=== PATIENT | female | born 1960 | race Caucasian/White ===

== ENCOUNTER → 2018-08-11 | Outpatient (CLI) | payer MEDICAID, OTHER ==
--- NOTE | 2018-08-12 09:36 | MM ---
Reason for exam: screening (asymptomatic). Last mammogram was performed 2 years and 5 months ago. History: Patient is postmenopausal. Family history of breast cancer in maternal aunt and breast cancer in paternal grandmother at age 70. Benign stereotactic core biopsy of the right breast, October 04, 1999. Took hormonal contraceptives for 7 years. Physical Findings: A clinical breast exam by your physician is recommended on an annual basis and results should be correlated with mammographic findings. MG Screening Mammo w CAD Bilateral CC and MLO view(s) were taken. Prior study comparison: March 13, 2016, right breast MG work up mamm w CAD RT. March 06, 2016, bilateral MG foundation screening mammo. There are scattered fibroglandular densities. Finding: There are 7 mm equal density (isodense), obscured oval masses in both breasts. Previous mammotome biopsy in the right breast. ASSESSMENT: Incomplete: need additional imaging evaluation, BI-RAD 0 RECOMMENDATION: Special view mammogram of both breasts. If lesion persists on supplemental views, image directed ultrasound is recommended. [facility] will attempt to contact patient to return for supplemental views and ultrasound if indicated.
--- NOTE | 2018-08-12 14:15 | BD ---
EXAMINATION TYPE: Axial Bone Density DATE OF EXAM: 08/11/2018 COMPARISON: NONE CLINICAL HISTORY: Post menopausal female Height: 66 Weight: 218.1 FRAX RISK QUESTIONS: Alcohol (3 or more units per day): no Family History (Parent hip fracture): yes Glucocorticoids (More than 3mos): no (Ex: prednisone, prednisolone, methylprednisolone, dexamethasone, and hydrocortisone). History of Fracture in Adulthood: no Secondary Osteoporosis: 1. Type 1 Diabetes: no 2. Hyperthyroidism: no 3. Menopause before 45: no 4. Malnutrition: no 5. Chronic liver disease: yes Rheumatoid Arthritis: no Current Tobacco Use: no RISK FACTORS HISTORY OF: History of Wrist Fracture: left wrist When: as a child Family History of Osteoporosis: no Active: yes Diet low in dairy products/other sources of calcium: no Postmenopausal woman: age 56 Lost more than 2 inches in height since high school: no MEDICATIONS: none Additional History: EXAM MEASUREMENTS: Bone mineral densitometry was performed using the [employer] System. Bone mineral density as measured about the Lumbar spine is: ----- L1-L4(G/cm2): 1.110 T Score Values are as follows: ----- L2: -0.3 ----- L3: -0.2 ----- L4: -1.4 ----- L1-L4: -0.6 Bone mineral density has: decreased -11.4 % since study of: 06.20.2012 Bone mineral density about the R hip (g/cm2): 0.963 Bone mineral density about the L hip (g/cm2): 0.974 T Score values are as follows: -----R Neck: -0.5 -----L Neck: -0.5 -----R Total: 0.3 -----L Total: 0.2 Bone mineral density has: decreased -7.4 % since study of: 06.20.2012 IMPRESSION: Normal (Values between +1 and -1 indicate normal bone mass). Consider repeating this study in 5 year s or sooner if there is some new clinical indication. NOTE: T-SCORE=SD OF THE YOUNG ADULT MEAN.
== END | disposition home or self-care (01) ==
LOC: RADMAMWWP 15:03
PROVIDERS: ATTEND Obstetrics & Gynecology
DX: Z12.31 Encounter for screening mammogram for malignant neoplasm of breast (principal); Z13.820 Encounter for screening for osteoporosis
CPT/HCPCS: 77067; 77080

== ENCOUNTER → 2018-08-13 | Outpatient (CLI) | payer MEDICAID, OTHER ==
--- NOTE | 2018-08-14 09:59 | MM ---
Reason for exam: additional evaluation requested from abnormal screening. Last mammogram was performed less than 1 month ago. History: Patient is postmenopausal. Family history of breast cancer in maternal aunt and breast cancer in paternal grandmother at age 70. Benign stereotactic core biopsy of the right breast, October 04, 1999. Took hormonal contraceptives for 7 years. Physical Findings: Nurse did not find any significant physical abnormalities on exam. MG 3D Work Up W/Cad SHERWIN Bilateral spot compression CC, spot compression MLO, and LM view(s) were taken. Prior study comparison: August 11, 2018, bilateral MG screening mammo w CAD. March 13, 2016, right breast MG work up mamm w CAD RT. Finding: There are equal density (isodense) masses in both breasts. These results were verbally communicated with the patient and result sheet given to the patient on 08/13/18. ASSESSMENT: Incomplete: need additional imaging evaluation, BI-RAD 0 RECOMMENDATION: Ultrasound of both breasts.
--- NOTE | 2018-08-14 10:04 | USB ---
Reason for exam: additional evaluation requested from abnormal screening. History: Patient is postmenopausal. Family history of breast cancer in maternal aunt and breast cancer in paternal grandmother at age 70. Benign stereotactic core biopsy of the right breast, October 04, 1999. Took hormonal contraceptives for 7 years. US Breast Workup Limited SHERWIN Right limited breast ultrasound including focal area of concern, retroareolar and axilla demonstrates a 0.4 x 0.5 x 0.4cm cystic lesion at the posterior nipple and ducts at the posterior nipple. Left limited breast ultrasound including focal area of concern, retroareolar and axilla demonstrates a 1.1 x 0.8 x 0.3cm cystic lesion at 6 o'clock and ducts at the posterior nipple. These results were verbally communicated with the patient and result sheet given to the patient on 08/13/18. ASSESSMENT: Suspicious, BI-RAD 4 RECOMMENDATION: Aspiration of the right breast. Called Dr. Quan with mammographic findings and has scheduled an appointment for the patient for 09/11/18 at 8:[address] Carballo. Aspiration scheduled for 08/25/18 at 8:00. PRELIMINARY REPORT CALLED AND FAXED TO DR. CARBALLO ON 08/14/18.
== END | disposition home or self-care (01) ==
LOC: RADMAMWWP 14:12
PROVIDERS: ATTEND Obstetrics & Gynecology
DX: R92.8 Other abnormal and inconclusive findings on diagnostic imaging of breast (principal)
CPT/HCPCS: 77062; 77066

== ENCOUNTER → 2018-08-25 | Day surgery (SDC) | payer MEDICAID ==
[2018-08-25 07:33] VITALS: RESP 16; BMI 35.2
[2018-08-25 09:33] VITALS: BP 127/85; PULSE 85; TEMP 97.8
--- NOTE | 2018-08-25 11:58 | USB ---
EXAMINATION TYPE: US biopsy breast VAD RT, Postbiopsy MG diagnostic mammo RT wo CAD DATE OF EXAM: 08/25/2018 CLINICAL HISTORY: 57-year-old female R98.2 ABN CORTEZ. Referred for ultrasound- guided right breast biopsy TECHNIQUE: Ultrasound guided core biopsy of the right breast. COMPARISON: 08/13/2018 FINDINGS: The procedure of ultrasound guided core biopsy was explained to the patient. Benefits, alternatives, and risks were discussed. An informed consent was then obtained. The patient was placed in supine positioning for imaging and for the procedure. The overlying skin was prepped and draped in usual sterile fashion. Lidocaine buffered with bicarbonate was used as anesthetic into the skin and subcutaneous tissue up to area of concern in the subareolar right breast. Under ultrasound guidance, a 13-gauge vacuum-assisted mammotome Elite biopsy gun was used to obtain 3 core samples. The lesion collapsed after the first pass suggesting a cystic etiology. Following this, a ribbon clip was left at the site of biopsy. The patient tolerated the procedure well without any immediate complication. The patient was kept in the radiology department for short stay after the procedure and then discharged home in stable condition. Postprocedure mammogram shows the ribbon clip in place in the subareolar right breast at the site of mammographic asymmetry. IMPRESSION: Successful, uncomplicated ultrasound guided core biopsy of area of concern in the subareolar right breast. A cystic etiology is suggested given that the lesion collapsed after the first past. Full pathology results to follow. Pathology Results: Benign RIGHT BREAST POSTERIOR NIPPLE, ULTRASOUND GUIDED CORE BIOPSY: Fibrocystic changes including cysts with apocrine metaplasia and fibrosis. Recommendation Follow up ultrasound of the right breast in 6 months. HARPREET
== END | disposition home or self-care (01) ==
LOC: RADUSWWP 07:14
PROVIDERS: ATTEND Surgery
DX: N60.11 Diffuse cystic mastopathy of right breast (principal); N60.81 Other benign mammary dysplasias of right breast
CPT/HCPCS: 88305; 77065; 19083; A4648; J2001

== ENCOUNTER → 2018-12-05 | Outpatient (CLI) | payer MEDICAID ==
[2018-12-05 08:56] LABS: Basophils # (A) 0.1 k/uL (0-0.2); Basophils % (A) 2 %; Eosinophils # (A) 0.3 k/uL (0-0.7); Eosinophils % (A) 5 %; HCT 44.4 % (34.0-46.0); HGB 14.5 gm/dL (11.4-16.0); Lymphocytes # (A) 1.6 k/uL (1.0-4.8); Lymphocytes % (A) 32 %; MCHC 32.8 g/dL (31.0-37.0); MCV 88.6 fL (80.0-100.0); Monocytes # (A) 0.3 k/uL (0-1.0); Monocytes % (A) 6 %; Neutrophils # (A) 2.7 k/uL (1.3-7.7); Neutrophils % (A) 53 %; Platelet Count 324 k/uL (150-450); RBC 5.01 m/uL (3.80-5.40); RDW 14.4 % (11.5-15.5); WBC 5.1 k/uL (3.8-10.6)
[2018-12-05 11:40] LABS: Erythrocyte Sedimentation Rate 10 mm/hr (0-20)
[2018-12-05 17:02] LABS: Rheumatoid Factor 6 IU/mL (0-15)
[2018-12-05 17:11] LABS: Vitamin D 25 Hydroxy 41.3 ng/mL (30.0-100.0)
[2018-12-05 17:22] LABS: ALT 46 U/L (8-44); AST 30 U/L (13-35); African American GFR (CKD) 82.8 (60.0-200.0); Albumin/Globulin Ratio 2.14 (1.60-3.17); Alkaline Phosphatase 112 U/L (41-126); BUN/Creat Ratio 22.22 Ratio (12.00-20.00); C Reactive Protein <0.4 mg/dL (0.0-0.8); Calcium 10.2 mg/dL (8.7-10.3); Carbon Dioxide 29.6 mmol/L (21.6-31.8); Chloride 100 mmol/L (96-109); Cholesterol 256 mg/dL (0-200); Globulin 2.2 g/dL (1.6-3.3); Glucose 328 mg/dL (70-110); LDL Cholesterol,Calculated 146.2 mg/dL (0.0-131.0); Potassium 5.1 mmol/L (3.5-5.5); Sodium 139 mmol/L (135-145); Total Bilirubin 0.6 mg/dL (0.3-1.2); Total Protein 6.9 g/dL (6.2-8.2)
[2018-12-05 18:39] LABS: DNA Double-Stranded NEGATIVE (NEGATIVE)
== END | disposition home or self-care (01) ==
LOC: LABWHC1 08:06
PROVIDERS: ATTEND Physician Assistant Medical
DX: Z00.01 Encounter for general adult medical examination with abnormal findings (principal); R26.81 Unsteadiness on feet; G31.84 Mild cognitive impairment of uncertain or unknown etiology; R68.2 Dry mouth, unspecified; H04.129 Dry eye syndrome of unspecified lacrimal gland; Z13.228 Encounter for screening for other metabolic disorders
CPT/HCPCS: 36415; 80053; 80061; 82306; 82607; 84439; 84443; 85025; 85652; 86038; 86140; 86225; 86431

== ENCOUNTER → 2019-02-27 | Outpatient (CLI) | payer OTHER ==
--- NOTE | 2019-02-27 11:19 | USB ---
Reason for exam: follow-up at short interval from prior study. History: Patient is postmenopausal. Family history of breast cancer in maternal aunt and breast cancer in paternal grandmother at age 70. Benign US biopsy breast VAD RT of the right breast, August 25, 2018. Benign stereotactic core biopsy of the right breast, October 04, 1999. Took hormonal contraceptives for 7 years. Physical Findings: Nurse Summary: patient states she has pain right side 6 o'clock x 1 months intermittently (nurse TM). US Breast Limited BILAT Right limited breast ultrasound including focal area of concern, retroareolar and axilla demonstrates a clip seen at the posterior nipple and duct ectasia at the posterior nipple. Left limited breast ultrasound including focal area of concern, retroareolar and axilla demonstrates a 0.8 x 0.4 x 0.9cm cystic lesion at 6 o'clock, size stable, increased echoes with internal debris, a 0.6 x 0.3 x 0.5cm lesion too small to characterize at 8 o'clock and duct ectasia at the posterior nipple. These results were verbally communicated with the patient and result sheet given to the patient on 02/27/19. ASSESSMENT: Benign, BI-RAD 2 RECOMMENDATION: Return to routine screening mammogram schedule for both breasts. Back on schedule. Manage on a clinical basis with regard to left breast pain.
== END | disposition home or self-care (01) ==
LOC: RADUSWWP 09:00
PROVIDERS: ATTEND Obstetrics & Gynecology
DX: R92.8 Other abnormal and inconclusive findings on diagnostic imaging of breast (principal)

== ENCOUNTER → 2021-08-25 | Outpatient (CLI) | payer OTHER ==
--- NOTE | 2021-08-28 10:04 | MM ---
Reason for exam: screening (asymptomatic). Last mammogram was performed 3 years ago. History: Patient is postmenopausal. Family history of breast cancer in maternal aunt and breast cancer in paternal grandmother at age 70. Benign US biopsy breast VAD RT of the right breast, August 25, 2018. Benign stereotactic core biopsy of the right breast, October 04, 1999. Took hormonal contraceptives for 7 years. Physical Findings: A clinical breast exam by your physician is recommended on an annual basis and results should be correlated with mammographic findings. MG 3D Screening Mammo W/Cad Bilateral CC and MLO view(s) were taken. Prior study comparison: August 25, 2018, right breast MG diagnostic mammo RT wo CAD. August 13, 2018, bilateral MG 3d work up w/cad SHERWIN. There are scattered fibroglandular densities. There is no discrete abnormality. No significant changes when compared with prior studies. ASSESSMENT: Negative, BI-RAD 1 RECOMMENDATION: Routine screening mammogram of both breasts in 1 year.
== END | disposition home or self-care (01) ==
LOC: RADMAMWWP 07:07
PROVIDERS: ATTEND Obstetrics & Gynecology
DX: Z12.31 Encounter for screening mammogram for malignant neoplasm of breast (principal); Z80.3 Family history of malignant neoplasm of breast; Z78.0 Asymptomatic menopausal state
CPT/HCPCS: 77063; 77067

== ENCOUNTER 2021-11-22 09:13 | Day surgery (SDC) | payer OTHER ==
[2021-11-17 15:46] VITALS: BMI 30.4
[~2021-11-22 09:13] MED LIST: LACTATED RINGERS 1,000 ML IV SCH
[2021-11-22 10:07] LABS: Glucose,Whole Blood 173 mg/dL (70-110)
[2021-11-22] MEDS ORDERED: PROPOFOL 10 MG/ML 20 ML VIAL IV ONE (10:35)
--- NOTE | 2021-11-22 10:53 | P.PCN ---
Date of Procedure: 11/22/21 Procedure(s) Performed: BRIEF HISTORY: Patient is a 60-year-old pleasant white female scheduled for an elective colonoscopy as a part of evaluation of intermittent rectal bleeding for the last 2 weeks' duration. PROCEDURE PERFORMED: Colonoscopy. PREOPERATIVE DIAGNOSIS: Intermittent rectal bleeding. IV sedation per Anesthesia. PROCEDURE: After informed consent was obtained, the patient, was brought into the endoscopy unit. IV sedation was administered by Anesthesia under continuous monitoring. Digital rectal examination was normal. Initially the Olympus CF-160 flexible video colonoscope was then inserted in the rectum, gradually advanced into the cecum without any difficulty. Careful examination was performed as the scope was gradually being withdrawn. Ileocecal valve and the appendiceal orifice were visualized and appeared normal. Prep was excellent. Mucosa of the cecum, ascending colon, transverse colon, descending colon, sigmoid colon, and rectum appeared normal. Retroflexion was performed in the rectum and all internal hemorrhoids were seen. The patient tolerated the procedure well. IMPRESSION: Normal-appearing colon from rectum to cecum with no evidence of colorectal neoplasia . Small internal hemorrhoids. RECOMMENDATIONS: Findings of this examination were discussed with the patient as well as a family. She was advised to be a high-fiber diet and take fiber supplements a regular basis and avoid straining and constipation. Recommend repeat screening colonoscopy in 10 years.
[2021-11-22 11:14] VITALS: RESP 16
[2021-11-22 11:28] VITALS: BP 146/90; PULSE 75
== END 2021-11-22 11:54 | disposition home or self-care (01) ==
LOC: ORWHC2ENDO 09:13
PROVIDERS: ATTEND Internal Medicine Gastroenterology
DX: K64.8 Other hemorrhoids (principal); K21.9 Gastro-esophageal reflux disease without esophagitis; E11.9 Type 2 diabetes mellitus without complications; Z88.5 Allergy status to narcotic agent; Z79.84 Long term (current) use of oral hypoglycemic drugs; Z79.899 Other long term (current) drug therapy; Z87.891 Personal history of nicotine dependence; Z82.49 Family history of ischemic heart disease and other diseases of the circulatory system
CPT/HCPCS: 45378; J2704

== ENCOUNTER → 2023-03-05 | Outpatient (CLI) | payer BC ==
--- NOTE | 2023-03-05 10:38 | US ---
EXAMINATION TYPE: US gallbladder DATE OF EXAM: 03/05/2023 COMPARISON: NONE CLINICAL INDICATION: Female, 62 years old with history of E11.65 TYPE 2 DIABETES MELLITUS WITH HYPERG LYCEMIA; RUQ pain. Diabetic. TECHNIQUE: Multiple sonographic images of the right upper quadrant are obtained. FINDINGS: EXAM MEASUREMENTS: Liver Length: 18.4 cm Gallbladder Wall: 0.2 cm CBD: 0.6 cm Right Kidney: 10.5 x 4.6 x 4.2 cm Pancreas: Tail obscured by overlying bowel gas Liver: Echogenic and heterogenous. Enlarged in size. Gallbladder: Multiple mobile echogenic foci. No wall thickening. Evidence for sonographic Sadler's sign: neg CBD: wnl, limited due to gas Right Kidney: Upper pole cystic lesion = 1.8 x 1.8 x 1.4 cm with nonshadowing echogenic focus seen p osteriorly = 0.6 cm IMPRESSION: 1. There is evidence of hepatomegaly with underlying hepatic steatosis. 2. Uncomplicated cholelithiasis. 3. Simple cyst right kidney.
--- NOTE | 2023-03-06 15:44 | MM ---
Reason for Exam: Screening (asymptomatic). Last mammogram was performed 1 year(s) and 6 month(s) ago. Patient History: Menarche at age 13. First Full-Term at age 26. Postmenopausal. Patient has history of breast feeding. Hormonal Contraceptives for 7 years until age 31. 08/25/2018, Benign Core Biopsy on the right side. 10/04/1999, Benign Stereotactic Core Biopsy on the right side. Paternal grandmother had breast cancer, age 70. Maternal aunt had breast cancer. Risk Values: Celina 5 year model risk: 2.5%. NCI Lifetime model risk: 11.6%. Prior Study Comparison: 08/13/2018 Bilateral Diagnostic Mammogram, [facility]. 08/25/2018 Right Diagnostic Mammogram, [facility]. 08/25/2021 Bilateral Screening Mammogram, [facility]. Tissue Density: There are scattered fibroglandular densities. Findings: Analyzed By CAD. Pattern appears symmetrical and stable. Focal asymmetry is within the left craniocaudal view. Coronary markers are within the right breast. No significant interval changes are evident. No suspicious groups of microcalcifications, spiculated or lobular masses, architectural distortion or other secondary signs of malignancy are mammographically apparent. Overall Assessment: Benign, BI-RAD 2 Management: Screening Mammogram of both breasts in 1 year. A negative mammogram report should not preclude additional follow up of suspicious palpable abnormalities. Patient should continue monthly self breast exam. A clinical breast exam by your physician is recommended on an annual basis and results should be correlated with mammographic findings. Electronically signed and approved by: Bulmaro Bello D.O. Radiologis
== END | disposition home or self-care (01) ==
LOC: RADUSWWP 07:59
PROVIDERS: ATTEND Family Medicine
DX: Z12.31 Encounter for screening mammogram for malignant neoplasm of breast (principal); E11.65 Type 2 diabetes mellitus with hyperglycemia; K80.20 Calculus of gallbladder without cholecystitis without obstruction; K76.0 Fatty (change of) liver, not elsewhere classified; N28.1 Cyst of kidney, acquired; R16.0 Hepatomegaly, not elsewhere classified; Z78.0 Asymptomatic menopausal state; Z80.3 Family history of malignant neoplasm of breast
CPT/HCPCS: 76705; 77063; 77067